=== PATIENT | female | born 1975 | race Caucasian/White ===

== ENCOUNTER 2018-05-24 22:02 | Emergency (ER) | payer SELFPAY ==
[~2018-05-24] VITALS: Ht 160 cm; Wt 86.2 kg
[~2018-05-24 22:02] MED LIST: ANTIVERT25 MG PO; ULTRAM50 MG PO
[2018-05-24 22:23] LABS: CLARITY,URINE CLEAR (CLEAR); COLOR,URINE YELLOW (YELLOW); LEUKOCYTE ESTERASE ,URINE TRACE (NEGATIVE); NITRITE,URINE NEGATIVE (NEGATIVE); PROTEIN,URINE DIPSTICK TRACE (NEGATIVE)
[2018-05-24 22:24] LABS: BILIRUBIN,URINE NEGATIVE (NEGATIVE); KETONES,URINE NEGATIVE (NEGATIVE); URINE UROBILINOGEN 0.2 mg/dL (0.2 - 1)
[2018-05-24 22:29] LABS: BACTERIA,URINE FEW /HPF; EPITHELIAL CELLS,URINE MODERATE /LPF
[2018-05-24 22:30] LABS: MUCUS,URINE MANY (RARE)
== END 2018-05-24 23:45 | disposition home or self-care (01) ==
LOC: ER 22:11
DX: M54.5 Low back pain (principal); S39.012A Strain of muscle, fascia and tendon of lower back, initial encounter; N30.91 Cystitis, unspecified with hematuria
CPT/HCPCS: 81001; 81025; 99283